=== PATIENT | male | born 1980 | race Native Hawaiian/Other Pacific Islander ===

== ENCOUNTER 2020-04-13 13:28 | Outpatient (CLI) | payer OTHER | END 2020-04-13 21:04 | disposition home or self-care (01) | LOC: LAB 13:28 | PROVIDERS: ATTEND Nurse Practitioner Family | DX: Z20.828 Contact with and (suspected) exposure to other viral communicable diseases (principal); J32.9 Chronic sinusitis, unspecified | CPT/HCPCS: 87635; G2023; U0003 ==